=== PATIENT | male | born 1995 | race American Indian/Alaskan Native ===

== ENCOUNTER 2017-09-14 20:35 | Emergency (ER) | payer SELFPAY | END 2017-09-14 20:55 | disposition left against medical advice (07) | LOC: ED 20:35 | DX: R51 Headache (principal); Z53.21 Procedure and treatment not carried out due to patient leaving prior to being seen by health care provider ==

== ENCOUNTER 2019-08-20 13:06 | Emergency (ER) | payer SELFPAY ==
[2019-08-20 13:20] VITALS: BP 114/77
--- NOTE | 2019-08-20 13:22 | Event Note ---
ED Screening Note ED Screening Note: Lip swelling after attempting to burst a pimple This initial assessment/diagnostic orders/clinical plan/treatment(s) is/are subject to change based on patients health status, clinical progression and re- assessment by fellow clinical providers in the ED. Further treatment and workup at subsequent clinical providers discretion. Patient/guardian urged not to elope from the ED as their condition may be serious if not clinically assessed and managed. Initial orders include: none
[2019-08-20] MEDS ORDERED: predniSONE 20 MG TAB PO ONE (14:19)
[2019-08-20] MEDS ORDERED: FAMOTIDINE 20 MG TAB PO ONE (14:19)
--- NOTE | 2019-08-20 14:42 | Emergency Department Report ---
HPI - General Chief Complaint: Allergic Reaction Time Seen by Provider: 08/20/19 14:11 - HPI HPI: This is a 23-year-old male who presents to the ED with his bottom lip swelling and some pain x1 day. Patient states yesterday he noticed that his lower lip w as a bit painful to the touch and later on swelling began. Patient states he does not recall being bitten by any insects, he does not recall any unusual food or contact. Patient denies taking any medication Patient denies fevers chills nausea vomiting abdominal pain ED Past Medical Hx - Past Medical History Previous Medical History?: No - Surgical History Past Surgical History?: No - Social History Smoking Status: Current Some Day Smoker Substance Use Type: Marijuana ED Review of Systems ROS: Stated complaint: RT SIDE LIP PAIN Other details as noted in HPI Comment: All other systems reviewed and negative Physical Exam - Physical Exam Vital Signs: Vital Signs 08/20/19 13:17 Temperature 98.5 F Pulse Rate 66 Respiratory 16 Rate Blood Pressure 114/77 O2 Sat by Pulse 99 Oximetry Physical Exam: GENERAL: Alert and oriented x3, no apparent distress, Normal Gait, atraumatic. HEAD: Head is normocephalic and a-traumatic. EYES: Extra ocular muscles are intact. Pupils are equal, round, and reactive to light and accommodation. NOSE: Nose symetrical, Nontender,Nares appeared normal. MOUTH:Mouth is well hydrated and without lesions. Tonsils nonerythematous or swollen, Uvula midline, Tongue not elevated. Mucous membranes are moist. Poste rior pharynx clear, no exudate or lesions. Patent airways. Left lower bottom lip mildly swollen., Nontender to palpation. No indications of insect bite, no fluctuant. NECK: Supple. Non edematous, No lymphadenopathy or thyromegaly. SKIN: Warm and dry, No lesions, No ulceration or induration present. ED Course Vital Signs 08/20/19 13:17 Temperature 98.5 F Pulse Rate 66 Respiratory 16 Rate Blood Pressure 114/77 O2 Sat by Pulse 99 Oximetry ED Medical Decision Making - Medical Decision Making 23-year-old presents with mild swelling of the lower lip. Patient received steroids in the ED. Discussed this patient to take Benadryl every night cold Compression 3 times daily to reduce swelling Vital signs are normal patient is in no acute or respiratory distress Critical care attestation.: If time is entered above; I have spent that time in minutes in the direct care of this critically ill patient, excluding procedure time. ED Disposition Clinical Impression: Lip edema, Allergic reaction, Angioedema of lips Disposition: TO HOME OR SELFCARE Is pt being admited?: No Does the pt Need Aspirin: No Condition: Stable Instructions: Angioedema (ED) Additional Instructions: Make sure to follow up with the primary care physician as discussed. Take Benadryl every night as needed for allergic reaction. If you have any worsening symptoms or develop new symptoms please return to ED immediately. Referrals: [facility] [Outside] - 3-5 Days [facility] [place] [Outside] - 3-5 Days [facility] [Outside] - 3-5 Days [facility] [Outside] - 3-5 Days Forms: Work/School Release Form(ED) Time of Disposition: 14:47
== END 2019-08-20 15:03 | disposition home or self-care (01) ==
LOC: ED 13:06
DX: T78.40XA Allergy, unspecified, initial encounter (principal); T78.3XXA Angioneurotic edema, initial encounter; Y92.89 Other specified places as the place of occurrence of the external cause; F17.200 Nicotine dependence, unspecified, uncomplicated; F12.10 Cannabis abuse, uncomplicated
CPT/HCPCS: 99282; J7512